=== PATIENT | male | born 1950 | race Caucasian/White ===

== ENCOUNTER 2025-05-14 07:27 | Day surgery (SDC) | payer OTHER ==
[2025-05-08 15:39] VITALS: BMI 25.8
[2025-05-14] MEDS ORDERED: BUPIVACAINE HCL/EPINEPHRINE/PF 30 ML VIAL IJ ONE (09:11)
[2025-05-14] MEDS ORDERED: MIDAZOLAM HCL 2 MG/2 ML SINGLE DOSE VIAL ONE (09:40)
[2025-05-14] MEDS ORDERED: PROPOFOL 40 ML ONE (09:40)
[2025-05-14] MEDS ORDERED: ONDANSETRON 4 MG/2 ML VIAL ONE (09:51)
[2025-05-14] MEDS ORDERED: PROPOFOL 20 ML ONE (10:15)
[2025-05-14] MEDS ORDERED: DEXAMETHASONE SOD PHOSPHATE 4 MG/1 ML VIAL ONE (10:31)
[2025-05-14] MEDS ORDERED: KETOROLAC TROMETHAMINE 30 MG/1 ML VIAL ONE (10:32)
[2025-05-14] MEDS ORDERED: SEVOFLURANE 250 ML BTL ONE (10:38)
[2025-05-14] MEDS: BUPIVACAINE 0.25% /EPI 1:200,000 10 ML VIAL INF ONE (10:41)
[2025-05-14] MEDS ORDERED: ONDANSETRON 4 MG/2 ML VIAL IVPUSH PRN (11:03)
[2025-05-14] MEDS ORDERED: LACTATED RINGERS SOLUTION 1,000 ML IV SCH (11:15)
[2025-05-14] MEDS ORDERED: ACETAMINOPHEN INJECTION 100 ML ONE (11:29)
[2025-05-14] MEDS ORDERED: FENTANYL CITRATE/PF 50 MCG/ML VIAL ONE ×2 (11:29→11:45)
[2025-05-14] MEDS: ACETAMINOPHEN 1000 MG/100 ML BAG IVPB ONE (11:31)
[2025-05-14 13:54] VITALS: RESP 16; TEMP 97.6
[2025-05-14 13:59] VITALS: BP 118/74; PULSE 66
== END 2025-05-14 13:35 | disposition home or self-care (01) ==
LOC: FASU 07:27
PROVIDERS: ATTEND Orthopaedic Surgery
PROC: 0SQD4ZZ Repair Left Knee Joint, Percutaneous Endoscopic Approach (ICD-10-PCS; principal; 2025-05-14 10:41)
DX: S83.242A Other tear of medial meniscus, current injury, left knee, initial encounter (principal); X58.XXXA Exposure to other specified factors, initial encounter; Y92.9 Unspecified place or not applicable; Y93.9 Activity, unspecified
CPT/HCPCS: 94760